=== PATIENT | female | born 1970 | race Caucasian/White ===

== ENCOUNTER 2019-05-22 07:11 | Day surgery (SDC) | payer OTHER | END 2019-05-22 22:37 | disposition home or self-care (01) | LOC: CT 07:11 | DX: E78.5 Hyperlipidemia, unspecified (principal) | CPT/HCPCS: 75571 ==

== ENCOUNTER 2022-05-01 07:53 | Day surgery (SDC) | payer BC ==
[~2022-05-01] VITALS: Ht 162.6 cm; Wt 70.0 kg
[2022-05-01] MEDS ORDERED: ERGO400 (08:13)
[2022-05-01] MEDS ORDERED: C COMPLEX1000 M1 (08:13)
[2022-05-01] MEDS ORDERED: Vitamin B-12100 MCG (08:13)
[2022-05-01] MEDS ORDERED: CENTRUM SILVER1 EAC2 (08:14)
[2022-05-01] MEDS ORDERED: MAGNESIUM OXID500 MG (08:14)
[2022-05-01] MEDS ORDERED: NIAC500 (08:14)
== END 2022-05-01 09:44 | disposition home or self-care (01) ==
LOC: ORSCSDS 07:53
PROVIDERS: Internal Medicine Gastroenterology
PROC: 0DBP8ZX Excision of Rectum, Via Natural or Artificial Opening Endoscopic, Diagnostic (ICD-10-PCS; principal; 2022-05-01 09:00)
DX: Z12.11 Encounter for screening for malignant neoplasm of colon (principal); D12.8 Benign neoplasm of rectum; K57.30 Diverticulosis of large intestine without perforation or abscess without bleeding
CPT/HCPCS: 88305; J2704; J7120